=== PATIENT | female | born 1990 | race Caucasian/White ===

== ENCOUNTER 2020-07-28 19:12 | Emergency (ER) | payer OTHER, SELFPAY ==
[2020-07-28 19:15] VITALS: BP 122/55; PULSE 88; RESP 18; TEMP 36.9; O2SAT 98; BMI 23.3
[2020-07-28] MEDS: SODIUM CHLORIDE 0.9% 1,000 ML 1000 ML IV (20:36)
[2020-07-28] MEDS: ACETAMINOPHEN 325 MG TABLET 650 MG PO (20:36)
[2020-07-28 20:57] LABS: Add Manual Diff / Slide Review NO; Basophils Absolute Auto 0 /uL (0-100); Basophils Percent Auto 0.3 % (0-2); Eosinophils Absolute Auto 0 /uL (0-450); Eosinophils Percent Auto 0.2 % (2-4); Hematocrit 38.9 % (36-46); Lymphocytes Absolute Auto 700 /uL (1100-4500); Lymphocytes Percent Auto 8.4 % (25-40); Mean Corpuscular HGB Conc 33.4 % (30-36); Mean Corpuscular Hemoglobin 30.1 PG (26-34); Monocytes Absolute Auto 400 /uL (0-900); Monocytes Percent Auto 4.4 % (3-14); Neutrophils Absolute Auto 7400 /uL (1500-7000); Neutrophils Percent Auto 86.7 % (50-75); Platelet Count 200 X10^3/uL (150-400); Red Blood Cell Count 4.32 X10^6/uL (4.0-5.2); Red Cell Distribution Width 13.1 % (11.6-14.8); White Blood Cell Count 8.5 X10^3/uL (4.5-11.0)
[2020-07-28 21:03] LABS: Lipase 64 U/L (23-300)
[2020-07-28 21:11] LABS: Bacteria Urine Few (2-10); Culture Indicated Urine Specimen Cultured; RBC Urine 1-5/HPF (0-5/HPF); Squamous Epithelial Cell Urine 1-5 /HPF (0-5/HPF); WBC Urine 1-5/HPF (0-5/HPF)
[2020-07-28 21:12] LABS: Urine Comments FEW CLUE CELLS
--- NOTE | 2020-07-28 21:13 | ED.NAVMDI ---
HPI - Nausea/Vomiting/Diarrhea General Chief complaint: Nausea/Vomiting/Diarrhea Stated complaint: 13 weeks , body aches,headache,stiff neck Time Seen by Provider: 07/28/20 19:36 Source: patient Mode of arrival: Ambulatory Limitations: no limitations History of Present Illness HPI Narrative: 30-year-old female. approximately 13 weeks EGA here for evaluation of a couple days of nausea and vomiting and body aches and headache and neck pain. Also is having some abdominal cramping. No vaginal bleeding. No urinary symptoms. No skin rashes. Has tried some mcnk-hci-ohbydas nausea medicine without any improvement. No sick contacts. No change in bowel habits. Related Data Previous Rx's Medication Instructions Recorded promethazine 12.5 mg PO Q6H PRN #14 tab 07/28/20 Allergies Allergy/AdvReac Type Severity Reaction Status Date / Time No Known Drug Allergies Allergy Verified 07/28/20 19:15 Review of Systems Constitutional Constitutional: Reports body ache(s), Reports chills, Reports fatigue and Reports fever(s) ENT Ears, Nose, Mouth, and Throat: Reports neck pain, Denies sinus pain and Denies sore throat Cardiovascular Cardiovascular: Denies chest pain and Denies dyspnea Respiratory Respiratory: Denies cough and Denies dyspnea Gastrointestinal Gastrointestinal: Denies abdominal pain, Reports nausea and Reports vomiting Genitourinary Genitourinary: Denies dysuria Genitourinary: Denies dysuria Musculoskeletal Musculoskeletal: Reports myalgias and Reports neck pain Integumentary/Breasts Skin/Breast: Denies rash Neurologic Neurologic: Denies behavioral changes and Denies confusion Psychiatric Psychiatric: Denies behavioral changes and Denies confusion Endocrine Endocrine: Reports fatigue Hematologic/Lymphatic Hematologic/Lymphatic: Denies easy bleeding and Denies easy bruising Patient History Medical History Healthy adult (Acute) Social History Smoking Status: Former smoker Smoking Status: Former smoker Substance Use Type: does not use Exam Initial Vital Signs Initial Vital Signs: Vital Signs Temperature 98.5 F 07/28/20 19:15 Pulse Rate 88 07/28/20 19:15 Respiratory Rate 18 07/28/20 19:15 Blood Pressure 122/55 L 07/28/20 19:15 Pulse Oximetry 98 07/28/20 19:15 Const General: cooperative and comfortable Limitations: mental status not altered HENMT Head: normal to inspection and normocephalic Neck Neck: no meningeal signs Resp Effort & Inspection: normal respiratory effort Cardio Rate: regular rate GI Palpation: soft Skin Lesions: no lesions Rashes: no rashes Neuro General: patient alert, patient awake and patient oriented x3 Cognition: normal cognition Speech: speech normal Extrem General: capillary refill normal Psych Appearance: grossly normal and well kempt Course Orders Ordered: ED Orders 07/28/20 20:35 Complete Blood Count AUTO DIFF Stat Comprehensive Metabolic Panel Stat Lipase Stat Urine Culture Stat Urine Microscopic Stat Discontinued Medications Acetaminophen (Tylenol) 650 mg PO NOW ONE Stop: 07/28/20 19:37 Last Admin: 07/28/20 20:36 Dose: 650 mg Documented by: BLAZE Sodium Chloride (Normal Saline 0.9%) 1,000 mls @ 1,000 mls/hr IV BOLUS ONE Stop: 07/28/20 20:35 Last Infusion: 07/28/20 21:38 Dose: 0 mls/hr Documented by: Admin: 07/28/20 20:36 Dose: 1,000 mls/hr Documented by: BLAZE Vital Signs Vital signs: Vital Signs - 8 hr 07/28/20 19:15 07/28/20 21:48 Temperature 98.5 F Pulse Rate 88 77 Respiratory Rate 18 Blood Pressure 122/55 L 103/61 Pulse Oximetry 98 99 MDM - Nausea/Vomiting/Diarrhea Lab Data Attestation: I reviewed the patient's lab results. Result diagrams: 07/28/20 20:35 07/28/20 20:35 Labs: Lab Results 07/28/20 07/28/20 07/28/20 Range/Units 20:35 20:35 20:35 WBC 8.5 (4.5-11.0) X10^3/uL RBC 4.32 (4.0-5.2) X10^6/uL Hgb 13.0 (12.0-16.0) g/dL Hct 38.9 (36-46) % MCV 90.0 (80-100) fL MCH 30.1 (26-34) PG MCHC 33.4 (30-36) % RDW 13.1 (11.6-14.8) % Plt Count 200 (150-400) X10^3/uL Neut % (Auto) 86.7 H (50-75) % Lymph % (Auto) 8.4 L (25-40) % [place] % (Auto) 4.4 (3-14) % Eos % (Auto) 0.2 L (2-4) % Baso % (Auto) 0.3 (0-2) % Neut # (Auto) 7400 H (4553-3454) /uL Lymph # (Auto) 700 L (4157-9223) /uL [place] # (Auto) 400 (0-900) /uL Eos # (Auto) 0 (0-450) /uL Baso # (Auto) 0 (0-100) /uL Sodium (137-145) mmol/L Potassium (3.4-5.1) mmol/L Chloride (98-107) mmol/L Carbon Dioxide (22-32) mmol/L BUN (7-17) mg/dL Creatinine (0.52-1.04) mg/dL Estimated GFR (>60) mL/min BUN/Creatinine Ratio (6-22) Glucose (70-100) mg/dL Calcium (8.4-10.2) mg/dL Total Bilirubin (0.2-1.3) mg/dL AST (14-36) IU/L ALT (<35) IU/L Alkaline Phosphatase (38-126) U/L Total Protein (6.3-8.2) g/dL Albumin (3.5-5.0) g/dL Globulin (1.7-4.1) g/dL Albumin/Globulin Ratio (1.0-2.8) Lipase 64 (23-300) U/L Urine RBC 1-5/hpf (0-5/HPF) Urine WBC 1-5/hpf (0-5/HPF) Ur Squamous Epith Cells 1-5 /hpf (0-5/HPF) Urine Bacteria Few (2-10) H (None) Ur Culture Indicated? Specimen cultured Micro UA Comment Few clue cells 07/28/20 Range/Units 20:35 WBC (4.5-11.0) X10^3/uL RBC (4.0-5.2) X10^6/uL Hgb (12.0-16.0) g/dL Hct (36-46) % MCV (80-100) fL MCH (26-34) PG MCHC (30-36) % RDW (11.6-14.8) % Plt Count (150-400) X10^3/uL Neut % (Auto) (50-75) % Lymph % (Auto) (25-40) % [place] % (Auto) (3-14) % Eos % (Auto) (2-4) % Baso % (Auto) (0-2) % Neut # (Auto) (4523-1307) /uL Lymph # (Auto) (9996-2161) /uL [place] # (Auto) (0-900) /uL Eos # (Auto) (0-450) /uL Baso # (Auto) (0-100) /uL Sodium 133 L (137-145) mmol/L Potassium 4.0 (3.4-5.1) mmol/L Chloride 101 (98-107) mmol/L Carbon Dioxide 24 (22-32) mmol/L BUN 5 L (7-17) mg/dL Creatinine 0.59 (0.52-1.04) mg/dL Estimated GFR > 60.0 (>60) mL/min BUN/Creatinine Ratio 8.5 (6-22) Glucose 94 (70-100) mg/dL Calcium 9.4 (8.4-10.2) mg/dL Total Bilirubin 0.6 (0.2-1.3) mg/dL AST 31 (14-36) IU/L ALT 16 (<35) IU/L Alkaline Phosphatase 70 (38-126) U/L Total Protein 7.8 (6.3-8.2) g/dL Albumin 4.4 (3.5-5.0) g/dL Globulin 3.4 (1.7-4.1) g/dL Albumin/Globulin Ratio 1.3 (1.0-2.8) Lipase (23-300) U/L Urine RBC (0-5/HPF) Urine WBC (0-5/HPF) Ur Squamous Epith Cells (0-5/HPF) Urine Bacteria (None) Ur Culture Indicated? Micro UA Comment Point of Care Testing Test Results Positive Urine Dip Bedside Urine Glucose Negative Bedside Urine Bilirubin - Negative Bedside Urine Ketone - Negative Urine Specific [place] 1.015 Bedside Urine Occult Blood - Negative Bedside Urine pH 7.5 Bedside Urine Protein - Negative Bedside Urine Urobilinogen - Negative Bedside Urine Nitrite - Negative Bedside Urine Leukocytes + 70 Esterase MDM Narrative Medical decision making narrative: Urine has ketones but no other signs of an infection. Rest of her labs are unremarkable. Patient's physical exam is not consistent with meningitis. No other specific source of infection is found. No chest pain or shortness of breath. No indication for antibiotics. Will send home with a short prescription for nausea medication. She was given return precautions and follow-up instructions. She expressed understanding and agreement. Discharge Plan Departure Patient Disposition: Home Clinical Impression: Qualifiers: Weeks of gestation: 13 weeks Qualified Code(s): Z3A.13 - 13 weeks gestation of Nausea and vomiting Qualifiers: Vomiting type: unspecified Vomiting Intractability: unspecified Qualified Code(s): R11.2 - Nausea with vomiting, unspecified Discharge Date/Time: 07/28/20 22:04 Instructions: Nausea of (Alternative Therapy) Activity Restrictions/Additional Instructions: Recommend that you increase your fluid take as much as possible. Use the nausea medication as needed. Contact your OB provider for follow-up. You were tested for coronavirus. We will call you for both positive or negative results. Until then recommend that you self isolate. Return to the emergency department for any new or worsening symptoms Prescriptions: New promethazine 12.5 mg tablet 12.5 mg PO Q6H PRN (Reason: nausea and vomiting) Qty: 14 RF: 0
[2020-07-28 21:26] LABS: Alanine Aminotransferase 16 IU/L (<35); Albumin 4.4 g/dL (3.5-5.0); Albumin Globulin Ratio 1.3 (1.0-2.8); Alkaline Phosphatase 70 U/L (38-126); Aspartate Aminotransferase 31 IU/L (14-36); BUN Creatinine Ratio 8.5 (6-22); Bilirubin Total 0.6 mg/dL (0.2-1.3); Blood Urea Nitrogen 5 mg/dL (7-17); Calcium 9.4 mg/dL (8.4-10.2); Carbon Dioxide 24 mmol/L (22-32); Chloride 101 mmol/L (98-107); Estimated Glomerular Filt Rate > 60.0 mL/min (>60); Globulin 3.4 g/dL (1.7-4.1); Glucose 94 mg/dL (70-100); HEMOLYSIS < 15 (0-50); Sodium 133 mmol/L (137-145); Total Protein 7.8 g/dL (6.3-8.2)
[2020-07-28 21:48] VITALS: BP 103/61; PULSE 77; O2SAT 99
[2020-07-30 11:36] LABS: COVID19 Sendout Not Detected (Not Detected)
== END 2020-07-28 22:04 | disposition home or self-care (01) ==
PROVIDERS: Emergency Provider Emergency Medicine
DX: O21.9 Vomiting of pregnancy, unspecified (principal); M54.2 Cervicalgia; Z11.59 Encounter for screening for other viral diseases; Z3A.13 13 weeks gestation of pregnancy
CPT/HCPCS: 36415; 80053; 81003; 81015; 81025; 83690; 85025; 87086; 87635; 96360; 99284

== ENCOUNTER → 2020-12-26 16:34 | Outpatient (CLI) | payer OTHER, SELFPAY ==
[2020-12-27 13:27] LABS: Strep Grp B PCR NEG for Grp B Strep
== END ==
PROVIDERS: Visit Provider Specialist
DX: Z34.03 Encounter for supervision of normal first pregnancy, third trimester (principal); Z3A.35 35 weeks gestation of pregnancy
CPT/HCPCS: 87653

== ENCOUNTER 2021-01-27 19:49 | Outpatient (CLI) | payer OTHER, SELFPAY ==
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
== END 2021-01-27 20:55 | disposition home or self-care (01) ==
LOC: LABOR 20:04 → OB 01-28 06:50
PROVIDERS: Referring Provider Family Medicine; Visit Provider Family Medicine
DX: Z34.83 Encounter for supervision of other normal pregnancy, third trimester (principal); Z3A.39 39 weeks gestation of pregnancy
CPT/HCPCS: 59025; G0378; G0379

== ENCOUNTER 2021-01-30 16:25 | Inpatient (IN) | payer OTHER, SELFPAY ==
[2021-01-30] MEDS: LACTATED RINGERS 1,000 ML 100 ML IV (18:30)
[2021-01-30 18:36] LABS: Add Manual Diff / Slide Review NO; Basophils Absolute Auto 100 /uL (0-100); Basophils Percent Auto 0.6 % (0-2); Eosinophils Absolute Auto 0 /uL (0-450); Eosinophils Percent Auto 0.2 % (2-4); Hemoglobin 13.5 g/dL (12.0-16.0); Lymphocytes Absolute Auto 2100 /uL (1100-4500); Lymphocytes Percent Auto 9.6 % (25-40); Mean Corpuscular HGB Conc 33.9 % (30-36); Mean Corpuscular Hemoglobin 31.1 PG (26-34); Mean Corpuscular Volume 91.8 fL (80-100); Monocytes Absolute Auto 600 /uL (0-900); Neutrophils Absolute Auto 18600 /uL (1500-7000); Neutrophils Percent Auto 86.6 % (50-75); Platelet Count 190 X10^3/uL (150-400); Red Blood Cell Count 4.35 X10^6/uL (4.0-5.2); White Blood Cell Count 21.4 X10^3/uL (4.5-11.0)
[2021-01-30 19:21] LABS: COVID19 -Nasal RAPID Negative (Negative)
[2021-01-30 19:47] VITALS: BP 129/61
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
[2021-01-30] MEDS: OXYTOCIN PREMIX 30 UNIT/500 ML PLAST..BAG 350 UNIT IV (22:38)
--- NOTE | 2021-01-30 22:59 | PM.OBPRVD ---
Labor & Delivery Delivery date: 01/30/21 Induction method: none Delivery augmentation: rupture of membranes Delivery monitor: external FHT and external uterine Route of delivery: L&D Laceration Description: Superficial (Left periurethral and midline posterior no suturing required) Estimated blood loss (mL): 200 Anesthesia Type: Epidural Narrative: Patient arrived on Labor and delivery in active labor. She received an epidural catheter for pain control. She was AROMed for clear fluid. heart tones category 1 to category 2 throughout labor. She had a spontaneous vaginal delivery over an intact perineum. A loose nuchal cord was released prior to delivery of the body. The viable female was placed on maternal abdomen. After the cord stopped pulsating the cord was clamped, cut, and cord bloods obtained. The placenta delivered spontaneously, intact, with 3 vessels. There were no cervical, vaginal, or perineal tears other than a superficial periurethral tear and a superficial midline posterior tear that did not require suturing. Both mother doing well. [place] Baby 1: gender: Female Presentation: vertex Position: Right Occiput Anterior Placenta delivery description: Spontaneous Cord Vessel Description: 3 Vessels and Nuchal Cord score (1 min): 9 score (5 min): 9 Plan for aftercare: Routine care
[2021-01-31] MEDS: IBUPROFEN 600 MG TABLET PO ×4 (01:07→20:59)
[2021-01-31] MEDS: ACETAMINOPHEN 325 MG TABLET 650 MG PO ×4 (01:07→21:00)
[2021-01-31] MEDS: DERMOPLAST SPRAY 20% 60 ML 1 SPRAY TOP (01:08)
[2021-01-31 07:04] LABS: Hematocrit 33.9 % (36-46); Hemoglobin 11.5 g/dL (12.0-16.0); Mean Corpuscular Hemoglobin 30.9 PG (26-34); Mean Corpuscular Volume 90.8 fL (80-100); Platelet Count 166 X10^3/uL (150-400); Red Blood Cell Count 3.73 X10^6/uL (4.0-5.2); Red Cell Distribution Width 13.9 % (11.6-14.8); White Blood Cell Count 28.8 X10^3/uL (4.5-11.0)
[2021-01-31 07:05] LABS: Add Manual Diff / Slide Review YES
[2021-01-31 07:27] LABS: Neutrophils Absolute Manual 26784 /uL (3000-5900); RBC Morphology Normal Morphology; Total Cells Counted 100
[2021-01-31] MEDS: ESCITALOPRAM 10 MG TABLET PO (09:09)
--- NOTE | 2021-01-31 14:41 | P.PNOB_ITS ---
Subjective - OB Subjective Patient comments: no complaints [place] baby status: doing well [place] feeding status: exclusively breast feeding Date Patient Seen: 01/31/21 Time Patient Seen: 12:00 Interval history: Patient is 14 hours from vaginal delivery. She is having uterine cramps but otherwise is doing well. Exam Vital Signs (past 8 hours): Blood pressure 110/67, pulse 78, temperature 98.1? Narrative Exam Narrative: Abdomen is soft, nontender. Uterus is firm, at U, nontender. Mild lochia. Extremities without edema and nontender. Objective Labs Result Diagrams: 01/31/21 06:49 Labs: Laboratory Results - last 24 hr 01/30/21 01/30/21 01/30/21 15:20 18:15 18:15 WBC 21.4 H RBC 4.35 Hgb 13.5 Hct 40.0 MCV 91.8 MCH 31.1 MCHC 33.9 RDW 14.0 Plt Count 190 Neut % (Auto) 86.6 H Lymph % (Auto) 9.6 L [place] % (Auto) 3.0 Eos % (Auto) 0.2 L Baso % (Auto) 0.6 Neut # (Auto) 49131 H Lymph # (Auto) 2100 [place] # (Auto) 600 Eos # (Auto) 0 Baso # (Auto) 100 Total Counted Seg Neutrophils % Band Neutrophils % Lymphocytes % (Manual) Atypical Lymphs % Monocytes % (Manual) Neutrophils # (Manual) RBC Morphology SARS-CoV-2 (PCR) Negative Blood Type B Positive Antibody Screen Negative 01/31/21 06:49 WBC 28.8 H RBC 3.73 L Hgb 11.5 L Hct 33.9 L MCV 90.8 MCH 30.9 MCHC 34.0 RDW 13.9 Plt Count 166 Neut % (Auto) Not Reportable Lymph % (Auto) Not Reportable [place] % (Auto) Not Reportable Eos % (Auto) Not Reportable Baso % (Auto) Not Reportable Neut # (Auto) Lymph # (Auto) Not Reportable [place] # (Auto) Not Reportable Eos # (Auto) Baso # (Auto) Not Reportable Total Counted 100 Seg Neutrophils % 85.0 H Band Neutrophils % 8.0 H Lymphocytes % (Manual) 3.0 L Atypical Lymphs % 1.0 H Monocytes % (Manual) 3.0 Neutrophils # (Manual) 57770 H RBC Morphology Normal morphology SARS-CoV-2 (PCR) Blood Type Antibody Screen Assessment & Plan Assessment and Plan (1) Vaginal delivery: Status: Acute Plan day: 1 plan OB: routine care Comments: Home in a.m. if doing well Time Spent With Patient Time: Total time spent is greater than 50% in coordination of care (as documented) at patient's floor/unit and/or counseling patient: Time with patient: less than 15 minutes
[2021-02-01] MEDS: LANOLIN OINT 7 GM 1 APPLIC TOP (03:07)
[2021-02-01] MEDS: ACETAMINOPHEN 325 MG TABLET 650 MG PO ×2 (03:07→09:39)
[2021-02-01] MEDS: IBUPROFEN 600 MG TABLET PO ×2 (03:08→09:39)
[2021-02-01] MEDS: ESCITALOPRAM 10 MG TABLET PO (09:39)
[2021-02-01 10:20] VITALS: BP 130/76; PULSE 88; RESP 16; TEMP 37
--- NOTE | 2021-02-01 14:04 | PM.OBPN.1 ---
Subjective - OB Subjective Patient comments: no complaints [place] baby status: doing well and nursing well [place] feeding status: exclusively breast feeding Date Patient Seen: 02/01/21 Time Patient Seen: 14:05 Exam Vital Signs (past 8 hours): - 02/01/21 10:20 Temperature 98.6 F Pulse Rate 88 Respiratory Rate 16 Blood Pressure 130/76 Narrative Exam Narrative: Generally: Patient is sitting up in chair, no acute distress Fundus: Firm at U -1 Extremities: 1+ edema. Negative [place] Objective Labs Result Diagrams: 01/31/21 06:49 Assessment & Plan Assessment and Plan (1) Vaginal delivery: Status: Acute Plan day: 1 plan OB: discharge home Time Spent With Patient Time: Total time spent is greater than 50% in coordination of care (as documented) at patient's floor/unit and/or counseling patient: Time with patient: less than 15 minutes
--- NOTE | 2021-02-01 14:10 | P.DS_ITS ---
Discharge Providers Provider Date of admission: 01/30/21 16:25 Discharge Date: 02/01/21 Primary care physician: Doctor Lalito MD Consults: 01/30/21 18:18 Consult to Anesthesiology Urgent Comment: Consulting Provider: Anesthesiologist Reason for consultation: Epidural Has provider been notified: No 01/31/21 22:55 Consult to Senior Net Engineer Routine Comment: Discharge provider: Steph Ching MD Summary Hospital Course Date Patient Seen: 02/01/21 Time Patient Seen: 14:11 Diagnoses: Forty weeks gestation Spontaneous vaginal delivery Epidural analgesia Superficial periurethral laceration Hospital Course: Patient is a 30-year-old 2 para 2 day # 1-2 status post spontaneous vaginal delivery. She presented in active labor on January 30, 2021. She progressed rapidly in labor. She received an epidural for pain management. She had a spontaneous vaginal delivery without complication. Her course was unremarkable. Peripartum Data Delivery Method: Natural Vaginal Laceration Description: Superficial Episiotomy description: None Procedures: Epidural analgesia Spontaneous vaginal delivery complications: none 1: Gender: Female Disposition of : home Discharge Diagnosis (1) Vaginal delivery: Status: Acute Status at Discharge Cognitive/behavioral status at discharge: oriented Functional status at discharge: independent ambulation Overall status at discharge: patient is progressing back to baseline Time Spent with Patient Time attestation: Total time spent providing and/or coordinating discharge services: Time spent: Less than 30 minutes Objective Labs Result Diagrams: 01/31/21 06:49 Exam Vital Signs (past 8 hours): - 02/01/21 10:20 Temperature 98.6 F Pulse Rate 88 Respiratory Rate 16 Blood Pressure 130/76 Discharge Plan Discharge Plan Patient Disposition: Home Provider Discharge Comment: Call with fever, chills, or bleeding vaginally more than a pad in an hour Ibuprofen 600 mg every 6 hours as needed Tylenol 650 mg every 6 hours as needed Discharge orders & Medications Prescriptions: New escitalopram oxalate [Lexapro] 10 mg Tablet 10 mg PO DAILY Qty: 30 RF: 6 escitalopram oxalate [Lexapro] 10 mg tablet 10 mg PO DAILY Qty: 30 RF: 6 Discontinued prenat.vits,sung,[id number]-[id number] Tablet 1 tab PO DAILY RF: 0 Follow up/Referrals: Tri Gilliam MD [Physician] - 1 Month ([facility] 1 month on Tuesday) Doctor Starkey MD [Primary Care Provider] - Diet/Activity/Treatments Diet: Regular Activity: Nothing in vagina for 6 weeks Skin/Wound/Dressing Care Report to your healthcare provider any signs of infection, such as:: chills, fever and increased pain Visit Report/Discharge Packet Instructions: DI for Labor and Delivery, Vaginal Discharge Data Primary Care Provider: Doctor Lalito
== END 2021-02-01 14:55 | disposition home or self-care (01) | DRG 807 ==
PROVIDERS: Admitting Provider Specialist; Referring Provider Specialist; Visit Provider Specialist
DX: O69.81X0 Labor and delivery complicated by cord around neck, without compression, not applicable or unspecified (principal); Z37.0 Single live birth; Z3A.40 40 weeks gestation of pregnancy; O71.82 Other specified trauma to perineum and vulva; Z20.822 Contact with and (suspected) exposure to COVID-19
CPT/HCPCS: 01967; 36415; 59050; 59410; 85007; 85025; 86850; 86900; 86901; 87635; C9803; G0379; J2590

== ENCOUNTER → 2022-11-03 11:23 | Outpatient (CLI) | payer OTHER, MEDICAID, SELFPAY ==
[2022-11-03 12:54] LABS: Add Manual Diff / Slide Review NO; Basophils Absolute Auto 100 /uL (0-100); Basophils Percent Auto 0.6 % (0-2); Eosinophils Absolute Auto 300 /uL (0-450); Eosinophils Percent Auto 3.9 % (2-4); Hematocrit 41.3 % (36-46); Lymphocytes Absolute Auto 2200 /uL (1100-4500); Lymphocytes Percent Auto 25.8 % (25-40); Mean Corpuscular HGB Conc 33.8 % (30-36); Mean Corpuscular Hemoglobin 30.8 PG (26-34); Mean Corpuscular Volume 91.1 fL (80-100); Monocytes Absolute Auto 500 /uL (0-900); Monocytes Percent Auto 6.3 % (3-14); Neutrophils Absolute Auto 5400 /uL (1500-7000); Neutrophils Percent Auto 63.4 % (50-75); Platelet Count 243 X10^3/uL (150-400); Red Blood Cell Count 4.53 X10^6/uL (4.0-5.2); Red Cell Distribution Width 12.8 % (11.6-14.8); White Blood Cell Count 8.5 X10^3/uL (4.5-11.0)
[2022-11-03 13:08] LABS: Hemoglobin A1C% w Est Avg Glu 5.1 % (4.0-6.0)
[2022-11-03 13:22] LABS: Erythrocyte Sedimentation Rate 5 MM/HR (0-20)
[2022-11-03 14:04] LABS: Appearance Urine UA CLEAR; Bilirubin Urine UA NEGATIVE (NEGATIVE); Color Urine UA YELLOW; Glucose Urine UA NEGATIVE (Negative); Ketones Urine UA NEGATIVE (NEGATIVE); Leukocyte Esterase Urine UA NEGATIVE (NEGATIVE); Nitrite Urine UA NEGATIVE (Negative); Occult Blood Urine UA NEGATIVE (Negative); Protein Urine UA NEGATIVE (Negative); Specific Gravity Urine UA <=1.005 (1.000-1.035); Urobilinogen Urine UA 0.2 E.U./dL (0.2)
[2022-11-03 14:16] LABS: Bacteria Urine None Seen; Culture Indicated Urine Cult Not Indicated; RBC Urine None Seen (0-5/HPF); Squamous Epithelial Cell Urine 0-1 /HPF (0-5/HPF); WBC Urine 0-1/HPF (0-5/HPF)
[2022-11-03 19:35] LABS: HEMOLYSIS < 15 (0-50); Iron 107 ug/dL (37-170)
[2022-11-03 19:37] LABS: Alanine Aminotransferase 36 IU/L (<35); Albumin 4.6 g/dL (3.5-5.0); Albumin Globulin Ratio 1.7 (1.0-2.8); Alkaline Phosphatase 84 U/L (38-126); Aspartate Aminotransferase 35 IU/L (14-36); BUN Creatinine Ratio 7.8 (6-22); Bilirubin Total 0.6 mg/dL (0.2-1.3); Blood Urea Nitrogen 6 mg/dL (7-17); C-Reactive Protein Quant < 0.5 mg/dL (<1.0); Calcium 9.1 mg/dL (8.4-10.2); Carbon Dioxide 26 mmol/L (22-32); Chloride 103 mmol/L (98-107); Estimated Glomerular Filt Rate > 60 mL/min (>60); Globulin 2.7 g/dL (1.7-4.1); Glucose 83 mg/dL (70-100); HEMOLYSIS < 15 (0-50); Potassium 4.6 mmol/L (3.4-5.1); Sodium 141 mmol/L (137-145); Total Protein 7.3 g/dL (6.3-8.2)
[2022-11-03 19:59] LABS: Percent Iron Saturation 29 % (15-50); Total Iron Binding Capacity 365 ug/dL (265-497); Transferrin 296 mg/dL (206-381)
[2022-11-03 20:06] LABS: Rheumatoid Factor < 8.6 IU/mL (<12.0)
[2022-11-03 20:14] LABS: TSH w/ Reflex to FT4 1.77 uIU/mL (0.47-4.68)
[2022-11-03 20:15] LABS: Ferritin 17 ng/mL (6-137)
[2022-11-04 16:43] LABS: HIV 1 & 2 Ab/Ag 4th Gen Combo NEGATIVE (NEGATIVE); Hep C Virus Ab w/Reflex Quant NEGATIVE s/c (NEGATIVE)
[2022-11-05 16:35] LABS: ANA Screen, IFA Positive (.)
[2022-11-07 15:40] LABS: CCP Antibodies IgG/IgA 1 units (0-19)
== END ==
PROVIDERS: PCP Registered Nurse Diabetes Educator; Referring Provider Registered Nurse Diabetes Educator; Visit Provider Registered Nurse Diabetes Educator
DX: L65.0 Telogen effluvium (principal); M25.50 Pain in unspecified joint; R53.83 Other fatigue; R63.4 Abnormal weight loss
CPT/HCPCS: 36415; 80053; 81001; 82728; 83036; 83540; 83550; 84443; 85025; 85651; 86038; 86140; 86200; 86430; 86803; 87389

== ENCOUNTER → 2024-10-09 12:56 | Outpatient (CLI) | payer OTHER, MEDICAID, SELFPAY ==
--- NOTE | 2024-10-09 12:58 | DI.RAD.S_ITS ---
PROCEDURE: XR WRIST RT MIN 3V INDICATIONS: eval pain in hands, wrists, knees, si joints bilat TECHNIQUE: 3 views of the wrist were acquired. COMPARISON: None. FINDINGS: Bones: No fractures or dislocations. No suspicious bony lesions. Soft tissues: No suspicious soft tissue calcifications. IMPRESSION: No acute bony abnormality. Approved by: Orlin Mooney M.D. on 10/09/2024 at 18:37
--- NOTE | 2024-10-09 12:58 | DI.RAD.S_ITS ---
PROCEDURE: XR SACROILIAC JOINT MIN 3V INDICATIONS: eval pain in hands, wrists, knees, si joints bilat TECHNIQUE: 3 views of the sacroiliac joints were acquired. COMPARISON: None. FINDINGS: Bones: No bony erosions or ankylosis. No suspicious bony lesions. No fractures. Partial sacralization of the L5 vertebral body on the right. Soft tissues: Overlying bowel gas pattern is normal. No suspicious soft tissue densities. IMPRESSION: No radiographic evidence of sacroiliitis. Approved by: Orlin Mooney M.D. on 10/09/2024 at 18:39
--- NOTE | 2024-10-09 12:58 | DI.RAD.S_ITS ---
PROCEDURE: XR KNEE LT 3V INDICATIONS: eval pain in hands, wrists, knees, si joints bilat TECHNIQUE: 3 views of the knee were acquired. COMPARISON: None. FINDINGS: Bones: No fractures or dislocations. No suspicious bony lesions. Soft tissues: No joint effusion. No suspicious soft tissue calcifications. IMPRESSION: No acute bony abnormality or significant effusion. Approved by: Orlin Mooney M.D. on 10/09/2024 at 18:37
--- NOTE | 2024-10-09 12:58 | DI.RAD.S_ITS ---
PROCEDURE: XR HAND RT MIN 3V INDICATIONS: eval pain in hands, wrists, knees, si joints bilat TECHNIQUE: 3 views of the hand(s) acquired. COMPARISON: None. FINDINGS: Bones: No fractures or dislocations. Carpal bones are normally aligned. No suspicious bony lesions. No erosions. No periarticular osteophytes. Soft tissues: No suspicious soft tissue calcifications. IMPRESSION: No acute bony abnormality. No appreciable arthritic change. Dictated by: Areli Valdivia M.D. on 10/09/2024 at 19:22 Approved by: Areli Valdivia M.D. on 10/09/2024 at 19:31
--- NOTE | 2024-10-09 12:58 | DI.RAD.S_ITS ---
PROCEDURE: XR KNEE RT 3V INDICATIONS: eval pain in hands, wrists, knees, si joints bilat TECHNIQUE: 3 views of the knee were acquired. COMPARISON: None. FINDINGS: Bones: No fractures or dislocations. No suspicious bony lesions. Soft tissues: No joint effusion. No suspicious soft tissue calcifications. IMPRESSION: No acute bony abnormality or significant effusion. Approved by: Orlin Mooney M.D. on 10/09/2024 at 18:38
--- NOTE | 2024-10-09 12:58 | DI.RAD.S_ITS ---
PROCEDURE: XR WRIST LT MIN 3V INDICATIONS: eval pain in hands, wrists, knees, si joints bilat TECHNIQUE: 4 views of the wrist were acquired. COMPARISON: None. FINDINGS: Bones: No fractures or dislocations. No suspicious bony lesions. No erosions. No appreciable joint space narrowing. Soft tissues: No suspicious soft tissue calcifications. IMPRESSION: No acute bony abnormality. No appreciable arthritic change. Dictated by: Areli Valdivia M.D. on 10/09/2024 at 19:39 Approved by: Areli Valdivia M.D. on 10/09/2024 at 19:41
--- NOTE | 2024-10-09 12:58 | DI.RAD.S_ITS ---
PROCEDURE: XR HAND LT MIN 3V INDICATIONS: eval pain in hands, wrists, knees, si joints bilat TECHNIQUE: 3 views of the hand(s) acquired. COMPARISON: None. FINDINGS: Bones: No fractures or dislocations. Carpal bones are normally aligned. No suspicious bony lesions. No erosions. Soft tissues: No suspicious soft tissue calcifications. IMPRESSION: No acute bony abnormality. No appreciable arthritic change. Dictated by: Areli Valdivia M.D. on 10/09/2024 at 19:31 Approved by: Areli Valdivia M.D. on 10/09/2024 at 19:39
[2024-10-09 13:47] LABS: Add Manual Diff / Slide Review NO; Basophils Absolute Auto 100 /uL (0-100); Basophils Percent Auto 0.6 % (0-2); Eosinophils Absolute Auto 200 /uL (0-450); Eosinophils Percent Auto 2.2 % (2-4); Hematocrit 42.4 % (36-46); Hemoglobin 14.2 g/dL (12.0-16.0); Lymphocytes Absolute Auto 2400 /uL (1100-4500); Lymphocytes Percent Auto 29.3 % (25-40); Mean Corpuscular HGB Conc 33.4 % (30-36); Mean Corpuscular Hemoglobin 30.6 PG (26-34); Mean Corpuscular Volume 91.5 fL (80-100); Monocytes Absolute Auto 400 /uL (0-900); Monocytes Percent Auto 5.3 % (3-14); Neutrophils Absolute Auto 5100 /uL (1500-7000); Neutrophils Percent Auto 62.6 % (50-75); Platelet Count 304 X10^3/uL (150-400); Red Blood Cell Count 4.64 X10^6/uL (4.0-5.2); Red Cell Distribution Width 12.8 % (11.6-14.8); White Blood Cell Count 8.2 X10^3/uL (4.5-11.0)
[2024-10-09 14:12] LABS: Alanine Aminotransferase 28 IU/L (<35); Albumin 4.7 g/dL (3.5-5.0); Albumin Globulin Ratio 1.8 (1.0-2.8); Alkaline Phosphatase 77 U/L (38-126); Aspartate Aminotransferase 33 IU/L (14-36); BUN Creatinine Ratio 9.1 (6-22); Bilirubin Total 0.8 mg/dL (0.2-1.3); Blood Urea Nitrogen 7 mg/dL (7-17); C-Reactive Protein Quant < 0.5 mg/dL (<1.0); Calcium 9.7 mg/dL (8.4-10.2); Carbon Dioxide 27 mmol/L (22-32); Chloride 103 mmol/L (98-107); Estimated Glomerular Filt Rate > 60 mL/min (>60); Globulin 2.6 g/dL (1.7-4.1); Glucose 83 mg/dL (70-100); HEMOLYSIS < 15 (0-50); Potassium 4.5 mmol/L (3.4-5.1); Sodium 138 mmol/L (137-145); Total Protein 7.3 g/dL (6.3-8.2)
[2024-10-09 14:14] LABS: Rheumatoid Factor < 8.6 IU/mL (<12.0)
== END ==
LOC: LAB 12:57
PROVIDERS: PCP Registered Nurse Diabetes Educator; Referring Provider Registered Nurse Diabetes Educator; Visit Provider Registered Nurse Diabetes Educator
DX: M25.541 Pain in joints of right hand (principal); M25.542 Pain in joints of left hand; M25.531 Pain in right wrist; M25.532 Pain in left wrist; M25.561 Pain in right knee; M25.562 Pain in left knee; M53.3 Sacrococcygeal disorders, not elsewhere classified; G89.29 Other chronic pain; M25.50 Pain in unspecified joint; R76.8 Other specified abnormal immunological findings in serum; M65.4 Radial styloid tenosynovitis [de Quervain]; Z79.899 Other long term (current) drug therapy
CPT/HCPCS: 36415; 72202; 73110; 73130; 73562; 80053; 81374; 85025; 86038; 86140; 86200; 86430